=== PATIENT | male | born 1980 | race Caucasian/White ===

== ENCOUNTER → 2019-12-23 | Outpatient (CLI) | payer OTHER ==
--- NOTE | 2019-12-23 08:37 | RAD ---
EXAM DESCRIPTION: Knee,Right Complete CLINICAL HISTORY: 39 years Male, KNEE PAIN COMPARISON: None. Findings: Four views/radiographs Location: Right knee No acute fracture or dislocation. Mild medial compartment narrowing. Small joint effusion. Small tibial osteophytes. Lateral patellar subluxation and tilt. IMPRESSION: Right knee osteoarthritis with a small joint effusion. No acute osseous abnormality. Electronically signed by: Rod Mac MD 12/23/2019 8:35 AM CDT
== END ==
LOC: RAD 08:00
PROVIDERS: ATTEND Orthopaedic Surgery
DX: M17.11 Unilateral primary osteoarthritis, right knee (principal); M25.461 Effusion, right knee